=== PATIENT | female | born 1990 | race African-American/Black ===

== ENCOUNTER 2017-02-07 14:13 | Emergency (ER) | payer MEDICAID ==
[~2017-02-07] VITALS: Ht 167.6 cm; Wt 66.7 kg
--- NOTE | 2017-02-07 15:12 | Emergency Room Report ---
History of Present Illness General Chief Complaint: Skin Rash/Abscess Source: Patient Present Illness HPI 26 YO Female presents to the ED c/o pain, swelling, and erythema of right forearm with itching x 2 days. She denies nausea, vomiting, fevers, chills. She denies history of immunocompromise or recent travel. Pt states she is UTD with vaccinations. Patient denies lesions elsewhere on the body or rash elsewhere. Denies abdominal pain, CP, Palpitations, LOC, AMS, dizziness, Changes in Vision, Sensation, paresthesias, or a sudden severe headache. Allergies: Coded Allergies: No Known Allergies (Unverified , 07/11/16) Patient History Past Medical History: see triage record Past Surgical History: none Pertinent Family History: none Last Menstrual Period: 1 week Now: No Immunizations: UTD Reviewed Nursing Documentation: PMH: Agreed, PSxH: Agreed Nursing Documentation-PMH Past Medical History: No Stated History Review of Systems All Other Systems: negative except mentioned in HPI Physical Exam Vital Signs Date Time Temp Pulse Resp B/P Pulse Ox O2 Delivery O2 Flow Rate FiO2 02/07/17 14:32 98.8 105 18 121/86 98 Room Air Sp02 EP Interpretation: reviewed, normal General Appearance: no apparent distress, alert, GCS 15, non-toxic Head: normocephalic, atraumatic Eyes: bilateral eye PERRL, bilateral eye normal inspection ENT: hearing grossly normal, normal pharynx, no angioedema, normal voice Neck: full range of motion, supple/symm/no masses Respiratory: lungs clear, normal breath sounds, speaking full sentences Cardiovascular #1: regular rate, rhythm, no edema Musculoskeletal: back normal, gait/station normal, normal range of motion, non- tender Neurologic: alert, oriented x3, responsive, motor strength/tone normal, sensory intact, speech normal Psychiatric: judgement/insight normal, memory normal, mood/affect normal Skin: normal color, warm/dry, well hydrated, rash, other - excoriated insect bite 2mm in diameter with 3cm of surrounding erythema and increased temperature to palpation, erythema is non-blanching. Lymphatic: no adenopathy Medical Decision Making PA Attestation Dr. garcia is my supervising Physician whom patient management has been discussed with. Diagnostic Impression: Primary Impression: Cellulitis Qualified Codes: L03.113 - Cellulitis of right upper limb Additional Impression: Insect bite Qualified Codes: W57.XXXA - Bitten or stung by nonvenomous insect and other nonvenomous arthropods, initial encounter ER Course Pt. presents to the ED c/o pain, swelling, and erythema of right forearm with itching x 2 days. Ddx considered but are not limited to cellulitis, insect bite, allergic reaction , abscess, fracture, d/L, gout Vital signs: are WNL, pt. is afebrile H&PE are most consistent with excoriated insect bite and secondary cellulitis of the right forearm. ORDERS: none required at this time, the diagnosis is clinical, no fluctuance noted, not suspected as abscess. ED INTERVENTIONS: None required at this time. DISCHARGE: At this time pt. is stable for d/c to home. Will provide printed patient care instructions, and any necessary prescriptions. Care plan and follow up instructions have been discussed with the patient prior to discharge. Last Vital Signs Date Time Temp Pulse Resp B/P Pulse Ox O2 Delivery O2 Flow Rate FiO2 02/07/17 14:32 98.8 105 18 121/86 98 Room Air Disposition: HOME, SELF-CARE Condition: Stable Scripts Diphenhydramine Hcl (BENADRYL ALLERGY) 25 Mg Tablet 25 MG PO QID for 5 Days, #20 TAB Prov: Meeta Haddad 02/07/17 Acetaminophen* (TYLENOL EXTRA STRENGTH*) 500 Mg Tablet 500 MG ORAL Q6H, #20 TAB 0 Refills Prov: Meeta Haddad 02/07/17 Cephalexin* (KEFLEX*) 500 Mg Capsule 500 MG ORAL EVERY 12 HOURS for 7 Days, #14 CAP 0 Refills Prov: Meeta Haddad 02/07/17 Patient Instructions: Cellulitis, [id number] Additional Instructions: Take medications as directed. Follow up with PCP in 3-5 days Return sooner to ED if new symptoms occur, or current symptoms become worse. - Please note that this Emergency Department Report was dictated using Programmr[employer] rice grader technology software, occasionally this can lead to erroneous entry secondary to interpretation by the dictation equipment. Meeta Haddad Feb 07, 2017 15:12
[2017-02-07 15:19] VITALS: BP 121/86
[2017-02-07] MEDS ORDERED: BENADRYL ALLERG25 M1 PO (15:33)
[2017-02-07] MEDS ORDERED: TYLENOL EXTRA500 MG ORAL (15:33)
[2017-02-07] MEDS ORDERED: CEPHALEXIN500 MG ORAL (15:33)
[2017-02-07 15:36] VITALS: BP 121/86
== END 2017-02-07 15:49 | disposition home or self-care (01) ==
LOC: EMR 15:02
DX: L03.113 Cellulitis of right upper limb (principal); S50.861A Insect bite (nonvenomous) of right forearm, initial encounter; W57.XXXA Bitten or stung by nonvenomous insect and other nonvenomous arthropods, initial encounter; Y93.9 Activity, unspecified; Y92.9 Unspecified place or not applicable
CPT/HCPCS: 99284

== ENCOUNTER 2017-06-28 19:35 | Inpatient (IN) | payer MEDICAID ==
[~2017-06-28] VITALS: Ht 165.1 cm; Wt 64.9 kg
[~2017-06-28 19:35] MED LIST: BENADRYL ALLERG25 M1 PO; CEPHALEXIN500 MG ORAL; TYLENOL EXTRA500 MG ORAL
[2017-06-28] MEDS ORDERED: NKM (19:44)
[2017-06-28] MEDS ORDERED: Hydromorphone 0.5mg/0.5ml inj IVP ONE (20:00)
[2017-06-28 20:10] VITALS: BP 106/75
--- NOTE | 2017-06-28 20:13 | Emergency Room Report ---
History of Present Illness General Chief Complaint: Abdominal Pain Source: Patient (YAMILE CHAHAL M.D.) Present Illness HPI Patient has history of crystal meth abuse. Patient states that her period was last week. She presents now complaining of pelvic pain. States that it feels like cramps. She denies any fever chest pain shortness of breath. She states that she use condoms and never had an STD. She denies any dysuria urinary frequency. Denies any rectal bleeding. Denies any nausea or vomiting. The pain has been since yesterday. Patient has not had this before. Patient states that she's never been and has never had any surgeries. Symptoms noted to be moderate to severe.No other modifying factors. No other associated signs and symptoms. No other complaints were noted. (YAMILE CHAHAL M.D.) Allergies: Coded Allergies: No Known Allergies (Unverified , 07/11/16) Patient History Past Medical History: psych hx - anxiety Past Surgical History: none Pertinent Family History: none Social History: Reports: drug use - methamphetamines, Denies: smoking, alcohol use Last Menstrual Period: 06/20/17 Now: No : 0 Para: 0 Reviewed Nursing Documentation: PMH: Agreed, PSxH: Agreed (YAMILE CHAHAL M.D.) Nursing Documentation-PMH History Of Psychiatric Problem: Yes - anxiety (YAMILE CHAHAL M.D.) Review of Systems All Other Systems: negative except mentioned in HPI (YAMILE CHAHAL M.D.) Physical Exam Vital Signs Date Time Temp Pulse Resp B/P (MAP) Pulse Ox O2 Delivery O2 Flow Rate FiO2 06/28/17 19:40 97.5 100 14 121/80 100 Room Air Sp02 EP Interpretation: reviewed, normal General Appearance: normal inspection, well appearing, no apparent distress, alert Head: atraumatic Eyes: bilateral eye normal inspection ENT: normal ENT inspection, hearing grossly normal, normal voice Neck: normal inspection, full range of motion, supple, no bony tend Respiratory: normal inspection, lungs clear, normal breath sounds, no respiratory distress, no retraction, no wheezing Cardiovascular #1: regular rate, rhythm, no edema Gastrointestinal: normal inspection, normal bowel sounds, soft, no guarding, no hernia, tenderness - bilateral lower quadrant and suprapubic Genitourinary: no CVA tenderness Musculoskeletal: normal inspection, back normal, normal range of motion Neurologic: normal inspection, alert, responsive, speech normal Psychiatric: normal inspection, judgement/insight normal, mood/affect normal Skin: normal inspection, normal color, no rash (YAMILE CHAHAL M.D.) Medical Decision Making Diagnostic Impression: Primary Impression: Ovarian mass Additional Impressions: Pelvic pain PID (acute pelvic inflammatory disease) ER Course Patient presents emergency department today complaining of pelvic pain. Patient is sexually active. Differential diagnoses include PID, over and torsion, ovarian mass, UTI, vaginitis just to name a few.Given the severity of the patient's presentation I felt this is a highly complex patient. This patient required extensive workup. Patient's laboratory workup shows evidence UTI. Patient's pelvic exam however shows evidence of PID. Patient's pelvic ultrasound shows a large left-sided ovarian mass. This could be cystic or a tubo-ovarian abscess. Therefore I felt the patient required antibiotics. Patient was started on Rocephin and doxycycline. Patient likely require admission as well. Will admit patient to MEDICATION CARE MANAGER or medicine for evaluation and antibiotics. Labs Test 06/28/17 20:07 06/28/17 20:13 Urine Color Yellow Urine Appearance Clear Urine pH 6.5 (4.5-8.0) Urine Specific [place] 1.015 (1.005-1.035) Urine Protein 1+ (NEGATIVE) Urine Glucose (UA) Negative (NEGATIVE) Urine Ketones Negative (NEGATIVE) Urine Occult Blood 3+ (NEGATIVE) Urine Nitrite Negative (NEGATIVE) Urine Bilirubin Negative (NEGATIVE) Urine Urobilinogen 4 MG/DL (0.0-1.0) Urine Leukocyte Esterase 2+ (NEGATIVE) Urine RBC 10-15 /HPF (0 - 2) Urine WBC 5-10 /HPF (0 - 2) Urine Squamous Epithelial Cells Few /LPF (NONE/OCC) Urine Amorphous Sediment Few /LPF (NONE) Urine Bacteria Moderate /HPF (NONE) Urine HCG, Qualitative Negative White Blood Count 7.4 K/UL (4.8-10.8) Red Blood Count 3.86 M/UL (4.20-5.40) Hemoglobin 10.6 G/DL (12.0-16.0) Hematocrit 33.1 % (37.0-47.0) Mean Corpuscular Volume 86 FL (80-99) Mean Corpuscular Hemoglobin 27.5 PG (27.0-31.0) Mean Corpuscular Hemoglobin Concent 32.1 G/DL (32.0-36.0) Red Cell Distribution Width 15.8 % (11.6-14.8) Platelet Count 281 K/UL (150-450) Mean Platelet Volume 6.0 FL (6.5-10.1) Neutrophils (%) (Auto) 68.4 % (45.0-75.0) Lymphocytes (%) (Auto) 18.5 % (20.0-45.0) Monocytes (%) (Auto) 8.1 % (1.0-10.0) Eosinophils (%) (Auto) 3.7 % (0.0-3.0) Basophils (%) (Auto) 1.3 % (0.0-2.0) Sodium Level 139 MMOL/L (136-145) Potassium Level 3.6 MMOL/L (3.5-5.1) Chloride Level 103 MMOL/L (98-107) Carbon Dioxide Level 29 MMOL/L (21-32) Anion Gap 8 mmol/L (5-15) Blood Urea Nitrogen 10 mg/dL (7-18) Creatinine 0.9 MG/DL (0.55-1.30) Estimat Glomerular Filtration Rate > 60 mL/min (>60) Glucose Level 94 MG/DL (74-106) Calcium Level 8.9 MG/DL (8.5-10.1) Total Bilirubin 0.6 MG/DL (0.2-1.0) Aspartate Amino Transf (AST/SGOT) 10 U/L (15-37) Alanine Aminotransferase (ALT/SGPT) 16 U/L (12-78) Alkaline Phosphatase 52 U/L (46-116) Total Creatine Kinase 46 U/L (26-308) Total Protein 6.9 G/DL (6.4-8.2) Albumin 3.5 G/DL (3.4-5.0) Globulin 3.4 g/dL Albumin/Globulin Ratio 1.0 (1.0-2.7) Lipase 83 U/L (73-393) (YAMILE CHAHAL M.D.) ER Course Pt to be admitted to Dr Penny Hernandez already aware of patient and will see in am Pt still c/o pain, will give another dose fentanyl (Joel Cole M.D.) CT/MRI/US Diagnostic Results CT/MRI/US Diagnostic Results : Imaging Test Ordered: pelvic ultrasound: left side mass (YAMILE CHAHAL M.D.) Last Vital Signs Date Time Temp Pulse Resp B/P (MAP) Pulse Ox O2 Delivery O2 Flow Rate FiO2 06/28/17 19:40 97.5 100 14 121/80 100 Room Air Status: improved (YAMILE CHAHAL M.D.) Disposition: ADMITTED INPATIENT Condition: Serious YAMILE CHAHAL M.D. Jun 28, 2017 20:13 Joel Cole M.D. Jun 28, 2017 23:55
[2017-06-28 20:40] LABS: BASOPHILS % (AUTO) 1.3 % (0.0-2.0); EOSINOPHILS % (AUTO) 3.7 % (0.0-3.0); HEMATOCRIT 33.1 % (37.0-47.0); HEMOGLOBIN 10.6 G/DL (12.0-16.0); LYMPHOCYTES % (AUTO) 18.5 % (20.0-45.0); MEAN CORPUSCULAR VOLUME 86 FL (80-99); MONOCYTES % (AUTO) 8.1 % (1.0-10.0); NEUTROPHILS % (AUTO) 68.4 % (45.0-75.0); PLATELET COUNT 281 K/UL (150-450); RED BLOOD COUNT 3.86 M/UL (4.20-5.40); RED CELL DISTRIBUTION WIDTH 15.8 % (11.6-14.8); WHITE BLOOD COUNT 7.4 K/UL (4.8-10.8)
[2017-06-28 20:41] LABS: APPEARANCE,URINE CLEAR; BILIRUBIN, URINE NEGATIVE (NEGATIVE); GLUCOSE, URINE (UA) NEGATIVE (NEGATIVE); KETONES,URINE NEGATIVE (NEGATIVE); LEUKOCYTE ESTERASE ,URINE 2+ (NEGATIVE); NITRITE,URINE NEGATIVE (NEGATIVE); PH,URINE 6.5 (4.5-8.0); PROTEIN,URINE 1+ (NEGATIVE); UROBILINOGEN,URINE 4 MG/DL (0.0-1.0)
[2017-06-28 20:43] LABS: COLOR,URINE YELLOW
[2017-06-28 20:55] LABS: ALANINE AMINOTRANSFERASE 16 U/L (12-78); ALBUMIN 3.5 G/DL (3.4-5.0); ALKALINE PHOSPHATASE 52 U/L (46-116); ANION GAP 8 mmol/L (5-15); ASPARTATE AMINO TRANSFERASE 10 U/L (15-37); BILIRUBIN,TOTAL 0.6 MG/DL (0.2-1.0); BLOOD UREA NITROGEN 10 mg/dL (7-18); CALCIUM 8.9 MG/DL (8.5-10.1); CARBON DIOXIDE 29 MMOL/L (21-32); CHLORIDE 103 MMOL/L (98-107); CREATINE KINASE 46 U/L (26-308); CREATININE 0.9 MG/DL (0.55-1.30); POTASSIUM 3.6 MMOL/L (3.5-5.1); SODIUM 139 MMOL/L (136-145)
[2017-06-28] MEDS ORDERED: cefTRIAXone 1 GM in NS 55 ML IVPB ONE ×2 (21:00→22:30)
[2017-06-28] MEDS ORDERED: Doxycycline Hyclate 100 MG in D5W 110 ML IVPB SCH (23:30)
[2017-06-29] VITALS (7 sets, daily range): BP systolic 95–115; BP diastolic 62–69
[2017-06-29] MEDS ORDERED: Doxycycline 100mg Inj IV ONE (00:08)
[2017-06-29] MEDS ORDERED: fentaNYL 100 mcg/2 mL IV ONE ×2 (00:30→00:59)
[2017-06-29] MEDS ORDERED: Morphine Sulfate 4mg/ml Inj IVP PRN (06:30)
--- NOTE | 2017-06-29 10:14 | Diagnostic Imaging Report ---
Indication: PAIN pelvic pain x2 days, negative test Technique: Transabdominal and transvaginal images Comparison: Findings: Uterus measures 8.2 cm length by 3.7 cm AP. Endometrium is not thickened, measures 2 mm thick. There is a small 18 mm long axis diameter uterine fundal fibroid. A distinct left ovary is not definitely visualized. There is a complex cystic left adnexal mass which overall measures 10 cm long axis dimension, contains a 7.8 cm cysts, as well as smaller nodular and cystic components. Free fluid is seen in the pelvic cul-de-sac. The right ovary is unremarkable.. Impression: Large complex cystic and solid left ovarian mass. Possibilities include benign complex adnexal cyst, cystic neoplasm. The possibility of torsion should also be considered. Small amount of free pelvic cul-de-sac fluid, likely physiologic Small uterine fundal fibroid This agrees with the preliminary interpretation provided overnight by [facility] teleradiology service.
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
[2017-06-29] MEDS ORDERED: cefOXitin Sod 2 GM in D5W 110 ML IVPB SCH (13:15)
[2017-06-29] MEDS: metroNIDAZOLE 500mg tab ORAL SCH ×2 (14:00→21:52)
[2017-06-29] MEDS: cefOXitin Sod 2 GM in D5W 110 ML IVPB SCH ×2 (14:36→18:32)
[2017-06-29 20:01] LABS: BASOPHILS % (AUTO) 2.4 % (0.0-2.0); EOSINOPHILS % (AUTO) 4.2 % (0.0-3.0); HEMATOCRIT 33.5 % (37.0-47.0); HEMOGLOBIN 10.5 G/DL (12.0-16.0); MEAN CORPUSCULAR VOLUME 85 FL (80-99); MONOCYTES % (AUTO) 9.9 % (1.0-10.0); NEUTROPHILS % (AUTO) 75.5 % (45.0-75.0); PLATELET COUNT 285 K/UL (150-450); RED BLOOD COUNT 3.92 M/UL (4.20-5.40); RED CELL DISTRIBUTION WIDTH 15.3 % (11.6-14.8); WHITE BLOOD COUNT 6.7 K/UL (4.8-10.8)
[2017-06-29] MEDS ORDERED: Zolpidem 5mg tab ORAL PRN (21:00)
[2017-06-29] MEDS ORDERED: cefTRIAXone 1 GM in D5W 55 ML IVPB SCH (21:00)
[2017-06-29] MEDS: Doxycycline Hyclate 100 MG in D5W 110 ML IV SCH (21:51)
--- NOTE | 2017-06-29 23:15 | History and Physical Report ---
DATE OF ADMISSION: 06/29/2017 REASON FOR ADMISSION: Abdominal pain. HISTORY OF PRESENT ILLNESS: This is a 26-year-old female. The patient presents with pelvic pain. The patient notes the pain is crampy in nature. She denies any bleeding. No nausea or vomiting. The patient denies any at present. The patient was admitted and evaluated. She did undergo further testing showing a left-sided mass, now being admitted for DELPHI DEVELOPER evaluation. PAST MEDICAL HISTORY: Notable for anxiety. SOCIAL HISTORY: The patient is unemployed. She used methamphetamines. Nonsmoker. Nondrinker. Last menstrual period 06/20/2017. REVIEW OF SYSTEMS: Otherwise negative. PHYSICAL EXAMINATION: GENERAL: A well-developed female, appears to be somewhat hypertensive. VITAL SIGNS: Otherwise stable, blood pressure 111/63, pulse 83, and respirations 18. HEENT: Otherwise negative. NECK: Supple. No adenopathy. LUNGS: Clear. CARDIAC: S1 and S2. Regular rhythm. ABDOMEN: With tender groin region. EXTREMITIES: No edema. NEUROLOGIC: Grossly nonfocal. LABORATORY AND DIAGNOSTIC DATA: Laboratory data otherwise reviewed. Chemistry is normal. CBC notable for hemoglobin 10.6. Imaging, reportedly with ovarian mask. IMPRESSION: Pelvic pain, possible ovarian mass, possible pelvic inflammatory disease, unclear. RECOMMENDATIONS: Empiric antibiotics. DELPHI DEVELOPER evaluation to recommend further. Pain control. Stabilize and discharge once improved. Richie Francis M.D. DR: JACQUELINE JOB#: [id number] CC:
--- NOTE | 2017-06-29 23:15 | History and Physical Report ---
DATE OF ADMISSION: 06/29/2017 REASON FOR ADMISSION: Abdominal pain. HISTORY OF PRESENT ILLNESS: This is a 26-year-old female. The patient presents with pelvic pain. The patient notes the pain is crampy in nature. She denies any bleeding. No nausea or vomiting. The patient denies any at present. The patient was admitted and evaluated. She did undergo further testing showing a left-sided mass, now being admitted for ENVIRONMENTAL SYSTEMS COORDINATOR evaluation. PAST MEDICAL HISTORY: Notable for anxiety. SOCIAL HISTORY: The patient is unemployed. She used methamphetamines. Nonsmoker. Nondrinker. Last menstrual period 06/20/2017. REVIEW OF SYSTEMS: Otherwise negative. PHYSICAL EXAMINATION: GENERAL: A well-developed female, appears to be somewhat hypertensive. VITAL SIGNS: Otherwise stable, blood pressure 111/63, pulse 83, and respirations 18. HEENT: Otherwise negative. NECK: Supple. No adenopathy. LUNGS: Clear. CARDIAC: S1 and S2. Regular rhythm. ABDOMEN: With tender groin region. EXTREMITIES: No edema. NEUROLOGIC: Grossly nonfocal. LABORATORY AND DIAGNOSTIC DATA: Laboratory data otherwise reviewed. Chemistry is normal. CBC notable for hemoglobin 10.6. Imaging, reportedly with ovarian mask. IMPRESSION: Pelvic pain, possible ovarian mass, possible pelvic inflammatory disease, unclear. RECOMMENDATIONS: Empiric antibiotics. ENVIRONMENTAL SYSTEMS COORDINATOR evaluation to recommend further. Pain control. Stabilize and discharge once improved. Richie Francis M.D. DR: JACQUELINE JOB#: [id number] CC:
--- NOTE | 2017-06-29 23:15 | History and Physical Report ---
DATE OF ADMISSION: 06/29/2017 REASON FOR ADMISSION: Abdominal pain. HISTORY OF PRESENT ILLNESS: This is a 26-year-old female. The patient presents with pelvic pain. The patient notes the pain is crampy in nature. She denies any bleeding. No nausea or vomiting. The patient denies any at present. The patient was admitted and evaluated. She did undergo further testing showing a left-sided mass, now being admitted for CLERICAL OFFICE evaluation. PAST MEDICAL HISTORY: Notable for anxiety. SOCIAL HISTORY: The patient is unemployed. She used methamphetamines. Nonsmoker. Nondrinker. Last menstrual period 06/20/2017. REVIEW OF SYSTEMS: Otherwise negative. PHYSICAL EXAMINATION: GENERAL: A well-developed female, appears to be somewhat hypertensive. VITAL SIGNS: Otherwise stable, blood pressure 111/63, pulse 83, and respirations 18. HEENT: Otherwise negative. NECK: Supple. No adenopathy. LUNGS: Clear. CARDIAC: S1 and S2. Regular rhythm. ABDOMEN: With tender groin region. EXTREMITIES: No edema. NEUROLOGIC: Grossly nonfocal. LABORATORY AND DIAGNOSTIC DATA: Laboratory data otherwise reviewed. Chemistry is normal. CBC notable for hemoglobin 10.6. Imaging, reportedly with ovarian mask. IMPRESSION: Pelvic pain, possible ovarian mass, possible pelvic inflammatory disease, unclear. RECOMMENDATIONS: Empiric antibiotics. CLERICAL OFFICE evaluation to recommend further. Pain control. Stabilize and discharge once improved. Richie Francis M.D. DR: JACQUELINE JOB#: [id number] CC:
[2017-06-30] VITALS: BP 114/59
[2017-06-30] MEDS: cefOXitin Sod 2 GM in D5W 110 ML IVPB SCH ×4 (01:52→17:29)
[2017-06-30 04:00] VITALS: BP 109/64
[2017-06-30 08:00] VITALS: BP 102/64
[2017-06-30] MEDS: metroNIDAZOLE 500mg tab ORAL SCH ×2 (08:28→20:38)
[2017-06-30] MEDS: Doxycycline Hyclate 100 MG in D5W 110 ML IV SCH ×2 (08:28→20:38)
[2017-06-30 12:00] VITALS: BP 104/68
--- NOTE | 2017-06-30 12:18 | General Progress Note ---
Assessment/Plan Assessment/Plan adnexal mass? possible PID groin pain PLAN per safety teacher convert to po outpatient safety teacher follow up needed for ongoing management return to ER if worsening symptoms importance of follow up discussed Subjective Allergies: Coded Allergies: No Known Allergies (Unverified , 07/11/16) Subjective improved Objective Last 24 Hour Vital Signs Date Time Temp Pulse Resp B/P (MAP) Pulse Ox O2 Delivery O2 Flow Rate FiO2 06/30/17 08:00 97.9 70 17 102/64 98 Room Air 06/30/17 04:00 97.9 78 18 109/64 100 Room Air 06/30/17 00:00 98.2 80 19 114/59 98 Room Air 06/30/17 00:00 98.2 80 19 114/59 98 Room Air 06/29/17 19:54 99.2 76 18 95/63 99 Room Air 06/29/17 16:00 97.7 74 17 115/62 98 Room Air Intake and Output 06/30/17 07/01/17 19:00 07:00 Intake Total 300 ml Balance 300 ml Intake Oral 300 ml # Voids 1 Laboratory Tests 06/29/17 13:00: Chlamydia trachomatis RNA [Pending] 06/29/17 19:30: White Blood Count 6.7, Red Blood Count 3.92L, Hemoglobin 10.5L, Hematocrit 33.5L , Mean Corpuscular Volume 85, Mean Corpuscular Hemoglobin 26.7L, Mean Corpuscular Hemoglobin Concent 31.3L, Red Cell Distribution Width 15.3H, Platelet Count 285, Mean Platelet Volume 5.3L, Neutrophils (%) (Auto) 75.5H, Lymphocytes (%) (Auto) 8.0L, Monocytes (%) (Auto) 9.9, Eosinophils (%) (Auto) 4.2H, Basophils (%) (Auto) 2.4H Height (Feet): 5 Height (Inches): 5.00 Weight (Pounds): 143 Objective WDWN NAD clear breath sounds bilaterally without rhonchi or wheeze [id number] without MRG NABS nontender no HSM no CCE nonfocal NAN VELASQUEZ Jun 30, 2017 12:18
--- NOTE | 2017-06-30 12:18 | General Progress Note ---
Assessment/Plan Assessment/Plan adnexal mass? possible PID groin pain PLAN per dog license officer supervisor convert to po outpatient dog license officer supervisor follow up needed for ongoing management return to ER if worsening symptoms importance of follow up discussed Subjective Allergies: Coded Allergies: No Known Allergies (Unverified , 07/11/16) Subjective improved Objective Last 24 Hour Vital Signs Date Time Temp Pulse Resp B/P (MAP) Pulse Ox O2 Delivery O2 Flow Rate FiO2 06/30/17 08:00 97.9 70 17 102/64 98 Room Air 06/30/17 04:00 97.9 78 18 109/64 100 Room Air 06/30/17 00:00 98.2 80 19 114/59 98 Room Air 06/30/17 00:00 98.2 80 19 114/59 98 Room Air 06/29/17 19:54 99.2 76 18 95/63 99 Room Air 06/29/17 16:00 97.7 74 17 115/62 98 Room Air Intake and Output 06/30/17 07/01/17 19:00 07:00 Intake Total 300 ml Balance 300 ml Intake Oral 300 ml # Voids 1 Laboratory Tests 06/29/17 13:00: Chlamydia trachomatis RNA [Pending] 06/29/17 19:30: White Blood Count 6.7, Red Blood Count 3.92L, Hemoglobin 10.5L, Hematocrit 33.5L , Mean Corpuscular Volume 85, Mean Corpuscular Hemoglobin 26.7L, Mean Corpuscular Hemoglobin Concent 31.3L, Red Cell Distribution Width 15.3H, Platelet Count 285, Mean Platelet Volume 5.3L, Neutrophils (%) (Auto) 75.5H, Lymphocytes (%) (Auto) 8.0L, Monocytes (%) (Auto) 9.9, Eosinophils (%) (Auto) 4.2H, Basophils (%) (Auto) 2.4H Height (Feet): 5 Height (Inches): 5.00 Weight (Pounds): 143 Objective WDWN NAD clear breath sounds bilaterally without rhonchi or wheeze [id number] without MRG NABS nontender no HSM no CCE nonfocal NAN VELASQUEZ Jun 30, 2017 12:18
--- NOTE | 2017-06-30 12:18 | General Progress Note ---
Assessment/Plan Assessment/Plan adnexal mass? possible PID groin pain PLAN per distribution designer convert to po outpatient distribution designer follow up needed for ongoing management return to ER if worsening symptoms importance of follow up discussed Subjective Allergies: Coded Allergies: No Known Allergies (Unverified , 07/11/16) Subjective improved Objective Last 24 Hour Vital Signs Date Time Temp Pulse Resp B/P (MAP) Pulse Ox O2 Delivery O2 Flow Rate FiO2 06/30/17 08:00 97.9 70 17 102/64 98 Room Air 06/30/17 04:00 97.9 78 18 109/64 100 Room Air 06/30/17 00:00 98.2 80 19 114/59 98 Room Air 06/30/17 00:00 98.2 80 19 114/59 98 Room Air 06/29/17 19:54 99.2 76 18 95/63 99 Room Air 06/29/17 16:00 97.7 74 17 115/62 98 Room Air Intake and Output 06/30/17 07/01/17 19:00 07:00 Intake Total 300 ml Balance 300 ml Intake Oral 300 ml # Voids 1 Laboratory Tests 06/29/17 13:00: Chlamydia trachomatis RNA [Pending] 06/29/17 19:30: White Blood Count 6.7, Red Blood Count 3.92L, Hemoglobin 10.5L, Hematocrit 33.5L , Mean Corpuscular Volume 85, Mean Corpuscular Hemoglobin 26.7L, Mean Corpuscular Hemoglobin Concent 31.3L, Red Cell Distribution Width 15.3H, Platelet Count 285, Mean Platelet Volume 5.3L, Neutrophils (%) (Auto) 75.5H, Lymphocytes (%) (Auto) 8.0L, Monocytes (%) (Auto) 9.9, Eosinophils (%) (Auto) 4.2H, Basophils (%) (Auto) 2.4H Height (Feet): 5 Height (Inches): 5.00 Weight (Pounds): 143 Objective WDWN NAD clear breath sounds bilaterally without rhonchi or wheeze [id number] without MRG NABS nontender no HSM no CCE nonfocal NAN VELASQUEZ Jun 30, 2017 12:18
[2017-06-30 16:00] VITALS: BP 96/58
[2017-06-30 20:00] VITALS: BP 98/65
[2017-07-01] MEDS: cefOXitin Sod 2 GM in D5W 110 ML IVPB SCH ×2 (00:17→06:30)
[2017-07-01 06:51] VITALS: BP 97/62
--- NOTE | 2017-07-01 06:58 | General Progress Note ---
Assessment/Plan Assessment/Plan adnexal mass? possible PID groin pain PLAN per taker off hemp fiber convert to po and dc today outpatient taker off hemp fiber follow up needed for ongoing management return to ER if worsening symptoms importance of follow up discussed Subjective Allergies: Coded Allergies: No Known Allergies (Unverified , 07/11/16) Subjective improved Objective Last 24 Hour Vital Signs Date Time Temp Pulse Resp B/P (MAP) Pulse Ox O2 Delivery O2 Flow Rate FiO2 07/01/17 06:51 98.2 78 19 97/62 100 Room Air 06/30/17 20:00 98.1 76 18 98/65 99 Room Air 06/30/17 16:00 97.3 91 19 96/58 98 Room Air 06/30/17 12:00 97.7 71 18 104/68 98 Room Air 06/30/17 08:00 97.9 70 17 102/64 98 Room Air Height (Feet): 5 Height (Inches): 5.00 Weight (Pounds): 143 Objective WDWN NAD clear breath sounds bilaterally without rhonchi or wheeze [id number] without MRG NABS nontender no HSM no CCE nonfocal NAN VELASQUEZ Jul 01, 2017 06:58
--- NOTE | 2017-07-01 06:58 | General Progress Note ---
Assessment/Plan Assessment/Plan adnexal mass? possible PID groin pain PLAN per collection administrator convert to po and dc today outpatient collection administrator follow up needed for ongoing management return to ER if worsening symptoms importance of follow up discussed Subjective Allergies: Coded Allergies: No Known Allergies (Unverified , 07/11/16) Subjective improved Objective Last 24 Hour Vital Signs Date Time Temp Pulse Resp B/P (MAP) Pulse Ox O2 Delivery O2 Flow Rate FiO2 07/01/17 06:51 98.2 78 19 97/62 100 Room Air 06/30/17 20:00 98.1 76 18 98/65 99 Room Air 06/30/17 16:00 97.3 91 19 96/58 98 Room Air 06/30/17 12:00 97.7 71 18 104/68 98 Room Air 06/30/17 08:00 97.9 70 17 102/64 98 Room Air Height (Feet): 5 Height (Inches): 5.00 Weight (Pounds): 143 Objective WDWN NAD clear breath sounds bilaterally without rhonchi or wheeze [id number] without MRG NABS nontender no HSM no CCE nonfocal NAN VELASQUEZ Jul 01, 2017 06:58
--- NOTE | 2017-07-01 06:58 | General Progress Note ---
Assessment/Plan Assessment/Plan adnexal mass? possible PID groin pain PLAN per branch library clerk convert to po and dc today outpatient branch library clerk follow up needed for ongoing management return to ER if worsening symptoms importance of follow up discussed Subjective Allergies: Coded Allergies: No Known Allergies (Unverified , 07/11/16) Subjective improved Objective Last 24 Hour Vital Signs Date Time Temp Pulse Resp B/P (MAP) Pulse Ox O2 Delivery O2 Flow Rate FiO2 07/01/17 06:51 98.2 78 19 97/62 100 Room Air 06/30/17 20:00 98.1 76 18 98/65 99 Room Air 06/30/17 16:00 97.3 91 19 96/58 98 Room Air 06/30/17 12:00 97.7 71 18 104/68 98 Room Air 06/30/17 08:00 97.9 70 17 102/64 98 Room Air Height (Feet): 5 Height (Inches): 5.00 Weight (Pounds): 143 Objective WDWN NAD clear breath sounds bilaterally without rhonchi or wheeze [id number] without MRG NABS nontender no HSM no CCE nonfocal NAN VELASQUEZ Jul 01, 2017 06:58
[2017-07-01 07:41] VITALS: BP 98/61
[2017-07-01] MEDS: metroNIDAZOLE 500mg tab ORAL SCH (08:11)
[2017-07-01] MEDS ORDERED: VIBRAMYCIN100 MG ORAL (09:08)
[2017-07-01] MEDS ORDERED: METRONIDAZOLE500 MG ORAL (09:09)
[2017-07-01] MEDS ORDERED: Tubing IV Secondary IV ONE (09:15)
--- NOTE | 2017-07-02 08:57 | Discharge Summary ---
Discharge Summary Hospital Course Date of Admission Jun 29, 2017 at 00:13 Date of Discharge Jul 01, 2017 at 09:28 Admitting Diagnosis OVARIAN MASS,PELVIC PAIN HPI Afua Katz is a 26 year old female who was admitted on Jun 29, 2017 at 00:13 for Ovarian Mass,Pelvic Pain Hospital Course dc summary #[id number] Discharge Medications Continued Medications: Doxycycline Hyclate* (Vibramycin*) 100 Mg Capsule 100 MG ORAL EVERY 12 HOURS, #22 CAP 0 Refills Metronidazole* (Flagyl*) 500 Mg Tablet 500 MG ORAL BID, #22 TAB 0 Refills No Known Medications* (NKM - No Known Medications*) . 0 ., 0 Refills Discontinued Medications: Acetaminophen* (Tylenol Extra Strength*) 500 Mg Tablet 500 MG ORAL Q6H, #20 TAB 0 Refills Cephalexin* (Keflex*) 500 Mg Capsule 500 MG ORAL EVERY 12 HOURS for 7 Days, #14 CAP 0 Refills Diphenhydramine Hcl (Benadryl Allergy) 25 Mg Tablet 25 MG PO QID for 5 Days, #20 TAB Discharge Condition Upon Discharge: stable Discharge Disposition Patient was discharged to Home (01) Discharge Diagnoses: Discharge Instructions Discharge Instructions Special Instructions I have been assigned to complete a D/C Summary on this account. I was not involved in the patient management Lizbet Gan NP (Vanchtein) Jul 02, 2017 08:57
--- NOTE | 2017-07-02 21:30 | Discharge Summary 2 SIG ---
DATE OF ADMISSION: 06/29/2017 DATE OF DISCHARGE: 07/01/2017 REASON FOR ADMISSION: 26-year-old female with a history of crystal meth abuse, presented with complaint of pelvic pain. She denied fever, chest pain, shortness of breath. She stated that she used condoms and never had sexually transmitted disease. She denied dysuria, urinary frequency, rectal bleeding. No nausea. No vomiting. The patient had period last week. The patient never was , never had any surgery. Workup in the emergency room revealed stable vital signs. No fever. Transvaginal pelvic ultrasound revealed large complex cystic and solid left ovarian mass. The patient was admitted for PID, pelvic pain, and ovarian mass. HOSPITAL STAY: The patient admitted. LEGGER PRESS OPERATOR consult was requested. Urine test was negative. Urinalysis was positive for moderate bacteriuria, positive for leukocyte esterase with negative nitrates, likely vaginal contamination, given copious vaginal discharge on the exam. Pelvic exam was consistent with pelvic inflammatory disease/tubo- ovarian abscess. According to LEGGER PRESS OPERATOR, transvaginal ultrasound revealed left ovarian mass. It most likely represented tubo-ovarian abscess. The patient was started on antibiotic as per CDC guidelines with cefoxitin 2 g IV q.6 h., doxycycline 100 mg IV q.6 h., and Flagyl 500 mg p.o. q.12 h. LEGGER PRESS OPERATOR recommended inpatient management for 48 hours to ensure that patient responding to treatment. After 48 hours , if improved, the patient could be discharged home on oral doxycycline 100 mg b.i.d. and Flagyl 500 mg b.i.d. to complete the course of total of 14 days. The patient was counseled to abstain from all sexual activity until she completes antibiotic course. Gonorrhea and chlamydia were collected. Result for Gonorrhea negative, for Chlamydia still pending. Pain management was addressed and pain was controlled. The patient had no leukocytosis. No fever. Urine test was negative. The patient was counseled on abstinence from street drugs, The patient was stable for discharge home and to complete the course of antibiotics. Prescription provided. FINAL DIAGNOSES: 1. Tubo-ovarian abscess. 2. Pelvic inflammatory disease. 3. Pelvic pain. DISCHARGE MEDICATIONS: See medication reconciliation list. Scripts provided for antibiotics to complete 14 days of treatment. DISCHARGE INSTRUCTIONS: The patient was discharged home. The patient was counseled to abstain from all sexual activity until completion the course of antibiotic. Richie Francis M.D. I have been assigned to dictate discharge summary on this account and I was not involved in the patient's management. Lizbet Gan N.P. (Vanchtein) DR: Lona JOB#: [id number] CC: ENEDELIA
--- NOTE | 2017-07-02 21:30 | Discharge Summary 2 SIG ---
DATE OF ADMISSION: 06/29/2017 DATE OF DISCHARGE: 07/01/2017 REASON FOR ADMISSION: 26-year-old female with a history of crystal meth abuse, presented with complaint of pelvic pain. She denied fever, chest pain, shortness of breath. She stated that she used condoms and never had sexually transmitted disease. She denied dysuria, urinary frequency, rectal bleeding. No nausea. No vomiting. The patient had period last week. The patient never was , never had any surgery. Workup in the emergency room revealed stable vital signs. No fever. Transvaginal pelvic ultrasound revealed large complex cystic and solid left ovarian mass. The patient was admitted for PID, pelvic pain, and ovarian mass. HOSPITAL STAY: The patient admitted. LINDERMAN MACHINE OPERATOR consult was requested. Urine test was negative. Urinalysis was positive for moderate bacteriuria, positive for leukocyte esterase with negative nitrates, likely vaginal contamination, given copious vaginal discharge on the exam. Pelvic exam was consistent with pelvic inflammatory disease/tubo- ovarian abscess. According to LINDERMAN MACHINE OPERATOR, transvaginal ultrasound revealed left ovarian mass. It most likely represented tubo-ovarian abscess. The patient was started on antibiotic as per CDC guidelines with cefoxitin 2 g IV q.6 h., doxycycline 100 mg IV q.6 h., and Flagyl 500 mg p.o. q.12 h. LINDERMAN MACHINE OPERATOR recommended inpatient management for 48 hours to ensure that patient responding to treatment. After 48 hours , if improved, the patient could be discharged home on oral doxycycline 100 mg b.i.d. and Flagyl 500 mg b.i.d. to complete the course of total of 14 days. The patient was counseled to abstain from all sexual activity until she completes antibiotic course. Gonorrhea and chlamydia were collected. Result for Gonorrhea negative, for Chlamydia still pending. Pain management was addressed and pain was controlled. The patient had no leukocytosis. No fever. Urine test was negative. The patient was counseled on abstinence from street drugs, The patient was stable for discharge home and to complete the course of antibiotics. Prescription provided. FINAL DIAGNOSES: 1. Tubo-ovarian abscess. 2. Pelvic inflammatory disease. 3. Pelvic pain. DISCHARGE MEDICATIONS: See medication reconciliation list. Scripts provided for antibiotics to complete 14 days of treatment. DISCHARGE INSTRUCTIONS: The patient was discharged home. The patient was counseled to abstain from all sexual activity until completion the course of antibiotic. Richie Francis M.D. I have been assigned to dictate discharge summary on this account and I was not involved in the patient's management. Lizbet Gan N.P. (Vanchtein) DR: Lona JOB#: [id number] CC: ENEDELIA
--- NOTE | 2017-07-02 21:30 | Discharge Summary 2 SIG ---
DATE OF ADMISSION: 06/29/2017 DATE OF DISCHARGE: 07/01/2017 REASON FOR ADMISSION: 26-year-old female with a history of crystal meth abuse, presented with complaint of pelvic pain. She denied fever, chest pain, shortness of breath. She stated that she used condoms and never had sexually transmitted disease. She denied dysuria, urinary frequency, rectal bleeding. No nausea. No vomiting. The patient had period last week. The patient never was , never had any surgery. Workup in the emergency room revealed stable vital signs. No fever. Transvaginal pelvic ultrasound revealed large complex cystic and solid left ovarian mass. The patient was admitted for PID, pelvic pain, and ovarian mass. HOSPITAL STAY: The patient admitted. BLACK PULLER consult was requested. Urine test was negative. Urinalysis was positive for moderate bacteriuria, positive for leukocyte esterase with negative nitrates, likely vaginal contamination, given copious vaginal discharge on the exam. Pelvic exam was consistent with pelvic inflammatory disease/tubo- ovarian abscess. According to BLACK PULLER, transvaginal ultrasound revealed left ovarian mass. It most likely represented tubo-ovarian abscess. The patient was started on antibiotic as per CDC guidelines with cefoxitin 2 g IV q.6 h., doxycycline 100 mg IV q.6 h., and Flagyl 500 mg p.o. q.12 h. BLACK PULLER recommended inpatient management for 48 hours to ensure that patient responding to treatment. After 48 hours , if improved, the patient could be discharged home on oral doxycycline 100 mg b.i.d. and Flagyl 500 mg b.i.d. to complete the course of total of 14 days. The patient was counseled to abstain from all sexual activity until she completes antibiotic course. Gonorrhea and chlamydia were collected. Result for Gonorrhea negative, for Chlamydia still pending. Pain management was addressed and pain was controlled. The patient had no leukocytosis. No fever. Urine test was negative. The patient was counseled on abstinence from street drugs, The patient was stable for discharge home and to complete the course of antibiotics. Prescription provided. FINAL DIAGNOSES: 1. Tubo-ovarian abscess. 2. Pelvic inflammatory disease. 3. Pelvic pain. DISCHARGE MEDICATIONS: See medication reconciliation list. Scripts provided for antibiotics to complete 14 days of treatment. DISCHARGE INSTRUCTIONS: The patient was discharged home. The patient was counseled to abstain from all sexual activity until completion the course of antibiotic. Richie Francis M.D. I have been assigned to dictate discharge summary on this account and I was not involved in the patient's management. Lizbet Gan N.P. (Vanchtein) DR: Loan JOB#: [id number] CC: ENEDELIA
== END 2017-07-01 09:28 | disposition home or self-care (01) | DRG 531 ==
LOC: EMR 19:57 → 3E 06-29 00:13 → EDBEDREQ 06-29 00:36 → 3E 06-29 03:05
DX: N70.93 Salpingitis and oophoritis, unspecified (principal); F15.10 Other stimulant abuse, uncomplicated; N73.9 Female pelvic inflammatory disease, unspecified; Z59.0 Homelessness
CPT/HCPCS: 36415; 76856; 80053; 81003; 81025; 82550; 83690; 85025; 87086; 87181; 87491; 87590; 99285; J2405; J3490

== ENCOUNTER 2017-09-15 23:00 | Emergency (ER) | payer MEDICAID ==
[~2017-09-15] VITALS: Ht 165.1 cm; Wt 63.5 kg
[~2017-09-15 23:00] MED LIST changes: +METRONIDAZOLE500 MG ORAL; +NKM; +VIBRAMYCIN100 MG ORAL
[2017-09-15] MEDS ORDERED: Ketorolac 30mg Inj IV ONE (23:15)
[2017-09-15 23:42] LABS: APPEARANCE,URINE CLOUDY; BILIRUBIN, URINE NEGATIVE (NEGATIVE); GLUCOSE, URINE (UA) NEGATIVE (NEGATIVE); KETONES,URINE NEGATIVE (NEGATIVE); LEUKOCYTE ESTERASE ,URINE 1+ (NEGATIVE); NITRITE,URINE POSITIVE (NEGATIVE); PH,URINE 6 (4.5-8.0); PROTEIN,URINE NEGATIVE (NEGATIVE); UROBILINOGEN,URINE 4 MG/DL (0.0-1.0)
[2017-09-15 23:45] VITALS: BP 101/69
[2017-09-15 23:46] LABS: BASOPHILS % (AUTO) 1.2 % (0.0-2.0); EOSINOPHILS % (AUTO) 1.2 % (0.0-3.0); HEMATOCRIT 34.4 % (37.0-47.0); HEMOGLOBIN 10.8 G/DL (12.0-16.0); LYMPHOCYTES % (AUTO) 19.3 % (20.0-45.0); MEAN CORPUSCULAR VOLUME 83 FL (80-99); MONOCYTES % (AUTO) 11.3 % (1.0-10.0); PLATELET COUNT 332 K/UL (150-450); RED BLOOD COUNT 4.12 M/UL (4.20-5.40); RED CELL DISTRIBUTION WIDTH 14.5 % (11.6-14.8); WHITE BLOOD COUNT 8.3 K/UL (4.8-10.8)
[2017-09-15 23:49] LABS: ANION GAP 8 mmol/L (5-15); BLOOD UREA NITROGEN 14 mg/dL (7-18); CALCIUM 8.6 MG/DL (8.5-10.1); CARBON DIOXIDE 27 MMOL/L (21-32); CHLORIDE 101 MMOL/L (98-107); CREATININE 0.9 MG/DL (0.55-1.30); POTASSIUM 3.8 MMOL/L (3.5-5.1); SODIUM 136 MMOL/L (136-145)
[2017-09-15 23:54] LABS: ALANINE AMINOTRANSFERASE 13 U/L (12-78); ALBUMIN 3.5 G/DL (3.4-5.0); ALBUMIN/GLOBULIN RATIO 0.9 (1.0-2.7); ALKALINE PHOSPHATASE 65 U/L (46-116); ASPARTATE AMINO TRANSFERASE 11 U/L (15-37); BILIRUBIN,TOTAL 0.5 MG/DL (0.2-1.0)
[2017-09-16] LABS: COLOR,URINE YELLOW
[2017-09-16] MEDS ORDERED: cefTRIAXone 1 GM in NS 55 ML IVPB ONE (00:15)
[2017-09-16] MEDS ORDERED: KEFLEX500 MG ORAL (02:16)
--- NOTE | 2017-09-16 02:17 | Emergency Room Report ---
History of Present Illness General Chief Complaint: Abdominal Pain Source: Patient Present Illness HPI Is a 27-year-old female presents with abdominal pain. Onset for 2 to 3 days. No nausea no vomiting. No diarrhea. Pain is severe 10 out of 10. Denies any other complaint. Called EMS because of the pain. Initially denies drug use. No radiation. Pain is diffuse in nature. Allergies: Coded Allergies: No Known Allergies (Unverified , 07/11/16) Patient History Past Medical History: see triage record, old chart reviewed Past Surgical History: none Pertinent Family History: none Social History: Reports: smoking, drug use Last Menstrual Period: 09/09/17 Now: No : 0 Para: 0 Immunizations: other Reviewed Nursing Documentation: PMH: Agreed, PSxH: Agreed Nursing Documentation-PMH Hx Cardiac Problems: No Hx Gastrointestinal Problems: No Hx Neurological Problems: No Review of Systems Eye: Denies: eye pain, blurred vision ENT: Denies: ear pain, nose congestion, throat swelling Respiratory: Denies: cough, shortness of breath Cardiovascular: Denies: chest pain, palpitations Gastrointestinal: Reports: abdominal pain, Denies: diarrhea, nausea, vomiting Musculoskeletal: Denies: back pain, joint pain Skin: Denies: rash Neurological: Denies: headache, numbness Endocrine: Denies: increased thirst, increased urine Hematologic/Lymphatic: Denies: easy bruising All Other Systems: negative except mentioned in HPI Physical Exam Vital Signs Date Time Temp Pulse Resp B/P (MAP) Pulse Ox O2 Delivery O2 Flow Rate FiO2 09/15/17 23:00 97.9 142 15 118/80 98 vitals with tachycardia Sp02 EP Interpretation: reviewed, normal General Appearance: well appearing, no apparent distress, alert Head: normocephalic, atraumatic Eyes: bilateral eye PERRL, bilateral eye EOMI ENT: hearing grossly normal, normal pharynx Neck: full range of motion, supple, no meningismus Respiratory: chest non-tender, lungs clear, normal breath sounds Cardiovascular #1: regular rate, rhythm, no murmur, tachycardia - Heart rate 120 Gastrointestinal: normal bowel sounds, non tender, no mass, no organomegaly, no bruit, non-distended Musculoskeletal: back normal, gait/station normal, normal range of motion Psychiatric: mood/affect normal Skin: warm/dry Medical Decision Making Diagnostic Impression: Primary Impression: Abdominal pain Qualified Codes: R10.84 - Generalized abdominal pain Additional Impressions: Polysubstance abuse UTI (urinary tract infection) Qualified Codes: N30.00 - Acute cystitis without hematuria Anemia Qualified Codes: D64.9 - Anemia, unspecified ER Course Patient with abdominal pain. Labs unremarkable. Heart rate is now in the 80. Pain resolved. No evidence of obstruction. No evidence of acute abdomen. She has no vaginal discharge. We'll treat for urinary tract infection. Lab Results Impression labs unremarkable CT/MRI/US Diagnostic Results CT/MRI/US Diagnostic Results : Imaging Test Ordered: CT abdomen and pelvis Impression no acute process per radiologist Last Vital Signs Date Time Temp Pulse Resp B/P (MAP) Pulse Ox O2 Delivery O2 Flow Rate FiO2 09/15/17 23:45 97.4 90 24 101/69 99 Status: improved Disposition: HOME, SELF-CARE Condition: Stable Scripts Cephalexin* (KEFLEX*) 500 Mg Capsule 500 MG ORAL TID, #21 CAP 0 Refills Prov: RAMON OLIVERA M.D. 09/16/17 Referrals: Gildardo OSUNA,REFERRING (PCP) Patient Instructions: Abdominal Pain, Adult Additional Instructions: Stop using drugs. Followup with your Dr. in 7 days. Return if worse. RAMON OLIVERA M.D. Sep 16, 2017 02:17
[2017-09-16 02:32] VITALS: BP 106/70
--- NOTE | 2017-09-16 08:15 | Diagnostic Imaging Report ---
Indication: Left lower quadrant pain Technique: CT scan of the abdomen and pelvis was performed from the diaphragms to the symphysis pubis with intravenous contrast material only per specific request of the ordering physician.. 5 mm sections were generated. Axial, coronal, and sagittal images are presented. Dose: Total Dose Length Product - DLP [address] Dose Index - CTDIvol(s) 13.68 mGy. Automated exposure control was utilized for dose reduction. Comparison: None Findings: The liver, gallbladder, spleen, pancreas, aorta, inferior vena cava, adrenal glands, and kidneys are unremarkable. The bowel appears normal caliber. The appendix is normal. Uterus is normal. There is a fluid-filled tubular structure in the left adnexa. Left ovary is not identified. Free fluid is noted in the cul-de-sac. The bladder is collapsed. The osseous structures are unremarkable. There is some atelectasis in lung bases. Impression: Dilated left lobe into. This may represent hydrosalpinx or pyosalpinx. Minimal free pelvic fluid. Atelectasis in the lung bases. Otherwise negative. The above report is concordant with preliminary reading by [employer] . The CT scanner at [facility] is accredited by the [employer] and the scans are performed using protocols designed to limit radiation exposure to as low as reasonably achievable to attain images of sufficient resolution adequate for diagnostic evaluation.
== END 2017-09-16 02:36 | disposition home or self-care (01) ==
LOC: EDBD 23:00 → EMR 23:09
DX: R10.9 Unspecified abdominal pain (principal); N39.0 Urinary tract infection, site not specified; D64.9 Anemia, unspecified; F19.10 Other psychoactive substance abuse, uncomplicated
CPT/HCPCS: 36415; 74177; 80053; 80307; 81003; 81025; 83690; 85025; 87086; 87181; 96361; 96374; 99284; J0696; J1885; Q9967

== ENCOUNTER 2018-02-08 09:43 | Emergency (ER) | payer MEDICAID ==
[~2018-02-08] VITALS: Ht 165.1 cm; Wt 59.4 kg
[~2018-02-08 09:43] MED LIST changes: +KEFLEX500 MG ORAL
[2018-02-08 09:59] VITALS: BP 113/75
[2018-02-08 10:36] VITALS: BP 113/75
--- NOTE | 2018-02-08 10:39 | Emergency Room Report ---
History of Present Illness General Chief Complaint: General Complaint Source: Patient Present Illness HPI Patient had presented with reports of question of Patient test was ordered And upon going to see the patient she has eloped prior to being seen Allergies: Coded Allergies: No Known Allergies (Unverified , 07/11/16) Patient History Last Menstrual Period: 01/08/18 Nursing Documentation-[facility] Hx Cardiac Problems: No Hx Gastrointestinal Problems: No Hx Neurological Problems: No Physical Exam Vital Signs Date Time Temp Pulse Resp B/P (MAP) Pulse Ox O2 Delivery O2 Flow Rate FiO2 02/08/18 09:51 98.1 90 18 113/75 97 Room Air 98.1 Medical Decision Making ER Course eloped prior to being seen Last Vital Signs Date Time Temp Pulse Resp B/P (MAP) Pulse Ox O2 Delivery O2 Flow Rate FiO2 02/08/18 10:36 98.1 90 18 113/75 97 Room Air 98.1 Disposition: LEFT W/OUT BEING SEEN Condition: Unknown Referrals: NOT APPLICABLE THIS PATIENT,RE (PCP) Rocío Carrion DO Feb 08, 2018 10:39
== END 2018-02-08 10:39 | disposition left against medical advice (07) ==
LOC: EMR 10:11
DX: Z53.21 Procedure and treatment not carried out due to patient leaving prior to being seen by health care provider (principal)
CPT/HCPCS: 81025; 99281; 99283